=== PATIENT | female | born 1955 ===

== ENCOUNTER 2018-08-14 07:30 | Outpatient (CLI) | payer OTHER | END 2018-08-14 07:31 | disposition home or self-care (01) | LOC: LAB 07:30 ==

== ENCOUNTER → 2018-10-08 | Outpatient (CLI) | payer MEDICAID, OTHER | LOC: RAD 07:26 ==

== ENCOUNTER 2018-10-14 08:13 | Outpatient (CLI) | payer OTHER | END 2018-10-14 08:14 | disposition home or self-care (01) | LOC: LAB 08:13 ==

== ENCOUNTER 2018-10-25 07:02 | Outpatient (CLI) | payer MEDICAID, OTHER | END 2018-10-25 07:03 | disposition home or self-care (01) | LOC: RAD 07:02 ==